=== PATIENT | male | born 1955 ===

== ENCOUNTER → 2018-01-10 06:35 | Outpatient (CLI) | payer OTHER | END | disposition home or self-care (01) | LOC: LAB 06:35 | DX: K83.1 Obstruction of bile duct (principal) ==

== ENCOUNTER 2018-01-10 07:34 | Outpatient (CLI) | payer OTHER | END 2018-01-10 12:23 | disposition home or self-care (01) | LOC: MRI 07:34 | DX: K83.1 Obstruction of bile duct (principal) | CPT/HCPCS: 74181 ==

== ENCOUNTER 2018-11-18 08:21 | Outpatient (CLI) | payer OTHER | END 2018-11-18 08:44 | disposition home or self-care (01) | LOC: TOM 08:21 | DX: C22.1 Intrahepatic bile duct carcinoma (principal) ==